=== PATIENT | female | born 1995 | race Two or more races ===

== ENCOUNTER 2017-11-11 18:25 | Emergency (ER) | payer MEDICAID ==
[~2017-11-11] VITALS: Ht 154.9 cm; Wt 66.2 kg
[2017-11-11 19:02] VITALS: BP 136/85
[2017-11-11 19:28] LABS: Basophils # (auto) 0.1 uL; Basophils % (auto) 0.5 % (0.0-2.0); Eosinophils # (auto) 0.1 uL; Eosinophils % (auto) 0.7 % (0.0-7.0); Hematocrit 40.8 % (36.0-46.0); Hemoglobin 13.7 g/dL (12.2-16.2); Lymphocytes # (auto) 2.8 uL; Mean Corpuscular Hemoglobin 28.3 pg (28.0-32.0); Mean Corpuscular Hgb Conc. 33.5 g/dL (32.0-36.0); Mean Corpuscular Volume 84.4 fL (80.0-100.0); Monocytes # (auto) 1.2 uL; Monocytes % (auto) 10.2 % (0.0-12.0); Neutrophils % (auto) 65.6 % (37.0-80.0); Platelet Count (auto) 368 10^3/uL (140-450); Red Blood Cells 4.84 10^6/uL (4.0-5.20); Red Cell Distribution Width 13.1 % (11.8-14.3); White Blood Cell 12.2 10^3/uL (4.4-10.8)
[2017-11-11 19:45] LABS: Albumin 3.8 g/dL (3.4-5.0); BUN/Creatinine Ratio 10.8; Calcium 9.2 mg/dL (8.5-10.1); Potassium 3.9 mmol/L (3.5-5.1)
[2017-11-11 19:48] LABS: Bilirubin, Total 0.6 mg/dL (0.2-1.0); Total Protein 8.6 g/dL (6.4-8.2)
[2017-11-11 20:51] LABS: Urine Bacteria FEW /hpf (None Seen); Urine Blood Negative /uL (Negative); Urine Specific Gravity 1.003 (1.001-1.035); Urine WBC 7 /hpf (0 - 5)
== END 2017-11-11 22:10 | disposition left against medical advice (07) ==
LOC: ER 18:25
DX: O26.891 Other specified pregnancy related conditions, first trimester (principal); O26.851 Spotting complicating pregnancy, first trimester; Z3A.01 Less than 8 weeks gestation of pregnancy; Z53.21 Procedure and treatment not carried out due to patient leaving prior to being seen by health care provider
CPT/HCPCS: 36415; 80053; 81001; 84702; 85025

== ENCOUNTER 2018-08-01 02:10 | Inpatient (IN) | payer MEDICAID | END 2018-08-02 16:10 | disposition home or self-care (01) | LOC: ER 02:10 → TELE 14:45 → TELE-EAST 17:24 | DX: K80.20 Calculus of gallbladder without cholecystitis without obstruction (principal); D47.3 Essential (hemorrhagic) thrombocythemia; D64.9 Anemia, unspecified; N39.0 Urinary tract infection, site not specified; D72.829 Elevated white blood cell count, unspecified ==

== ENCOUNTER 2024-08-20 09:03 | Emergency (ER) | payer MEDICAID, OTHER ==
[~2024-08-20] VITALS: Ht 157.5 cm; Wt 71.3 kg
[2024-08-20 09:25] VITALS: BP 111/78; PULSE 98; RESP 18; TEMP 97.7; O2SAT 100
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
[2024-08-20] MEDS: ONDANSETRON ODT 4 MG TAB PO ONE (10:08)
--- NOTE | 2024-08-20 10:24 | DVH ---
EXAM: CT HEAD WITHOUT CONTRAST HISTORY: HEADACHE WITH NAUSEA POST FALL COMPARISON: None TECHNIQUE: Axial images of the head were obtained and reformatted in coronal and sagittal planes. All CT scans at this medical facility are performed using dose modulation techniques as appropriate t o a performed exam including the following: Automated exposure control was utilized; adjustment of th e MA and/or KV according to patient size; and use of iterative reconstruction technique. CT Dose: CTDI volume is 56 mGy. Dose-length product is 1025 mGy*cm FINDINGS: There is no evidence of acute intracranial hemorrhage, mass, mass effect midline shift. There is no h ydrocephalus or extra-axial fluid collection. Sanabria-white matter differentiation is maintained. The visualized paranasal sinuses and mastoid air cells are clear. The calvarium is intact. IMPRESSION: 1. No acute intracranial process. HS:Y
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
[2024-08-20] MEDS ORDERED: ZOFR4T PO (11:21)
[2024-08-20] MEDS ORDERED: CYCL-839 PO (11:21)
== END 2024-08-20 11:26 | disposition home or self-care (01) ==
LOC: ER 09:03
DX: S06.0XAA Concussion with loss of consciousness status unknown, initial encounter (principal); S29.011A Strain of muscle and tendon of front wall of thorax, initial encounter; J45.909 Unspecified asthma, uncomplicated; F41.9 Anxiety disorder, unspecified; R51.9 Headache, unspecified; Z98.890 Other specified postprocedural states; W18.30XA Fall on same level, unspecified, initial encounter; Y93.89 Activity, other specified; Y92.89 Other specified places as the place of occurrence of the external cause; Y99.8 Other external cause status
CPT/HCPCS: 70450; 71101; 99284; Q0162